=== PATIENT | female | born 1970 | race Caucasian/White ===

== ENCOUNTER 2017-01-14 13:47 | Emergency (ER) | payer BC ==
[2017-01-14 14:45] LABS: COLOR YELLOW; LEUKOCYTE ESTERASE,URINE NEGATIVE (NEGATIVE); NITRITE,URINE POSITIVE (NEGATIVE)
[2017-01-14 14:49] VITALS: BP 119/70; PULSE 76; RESP 16; TEMP 98.4; O2SAT 97
[2017-01-14 14:55] LABS: BACTERIA 4+ /hpf (NONE SEEN)
--- NOTE | 2017-01-14 15:10 | UCPHY ---
H & P Time Seen by Provider: 01/14/17 14:55 Patient Type: Established HPI/ROS: HPI Urinary complaints. 46-year-old female by private vehicle. This patient reports that she has had increased frequency with urination and burning with urination for the last 1-2 days. She has had urinary tract infections in the past. She was treated for urinary tract infection last in August of 2016. She was given Keflex at that time with good results. ROS: Constitutional: No fever, no chills. No weakness. Eyes: No discharge. No changes in vision. ENT: No sore throat. No nasal congestion or rhinorrhea. Respiratory: No cough. No shortness of breath. Cardiac: No chest pain, no palpitations. Gastrointestinal: No abdominal pain, no vomiting, no diarrhea. Genitourinary: No hematuria. No dysuria or increased frequency with urination. Musculoskeletal: No back pain. No neck pain. No myalgias or arthralgias. Skin: No rashes. Neurological: No headache. No focal weakness or altered sensation. Past medical history: Migraine headaches, hypothyroid, urinary tract infections , appendectomy, hysterectomy. Social history: Here by herself. Nonsmoker. No alcohol. Physical Exam: General Appearance: Alert, no distress. This patient is responding to questions appropriately and in full sentences. This patient appears well- hydrated and well-nourished. Eyes: Pupils equal and round no pallor or injection. No lid edema, erythema or injection. Gastrointestinal: Abdomen is soft and nontender, no masses, bowel sounds normal. No focal tenderness at McBurney's point. No Delacruz sign. Neurological: Motor sensory function is grossly intact. Cranial nerves are normal. Gait is normal. Skin: Warm and dry, no rashes. Musculoskeletal: No CVA tenderness on palpation bilaterally. Extremities are symmetrical. All joints range without pain or impingement. Psychiatric: No agitation. No depression. Database: EKG: Imaging: Procedures: Emergency department course: Urinalysis indicates urinary tract infection. Patient given 500 mg of Keflex at urgent care. Plan will be to prescribe this medication to be taken 4 times daily over the next 5 days. She will also be given Pyridium for symptom relief. She feels comfortable going home and I feel she is safe for discharge. Her vital signs have been reviewed and are normal. Follow-up and return to Urgent Care precautions have been discussed with her. All of her questions were answered. She was discharged in good condition. Differential Diagnosis: The differential diagnosis on this patient includes but is not limited to urinary tract infection. Pyelonephritis, STD, appendicitis unlikely. This represents a partial list of diagnoses considered. These considerations are based on history, physical exam, past history, reassessment and diagnostic testing. Constitutional: Initial Vital Signs Temperature (C) 36.9 C 01/14/17 14:44 Heart Rate 76 01/14/17 14:44 Respiratory Rate 16 01/14/17 14:44 Blood Pressure 119/70 01/14/17 14:44 O2 Sat (%) 97 01/14/17 14:44 O2 Delivery Mode Room Air Allergies/Adverse Reactions: clindamycin Allergy (Verified 01/14/17 14:43) nitrofurantoin [From Macrobid] Allergy (Verified 01/14/17 14:43) nitrofurantoin macrocrystalline [From Macrobid] Allergy (Verified 01/14/17 14:43 ) ondansetron HCl [From Zofran] Allergy (Verified 01/14/17 14:43) Sulfa (Sulfonamide Antibiotics) Allergy (Verified 01/14/17 14:43) Home Medications: Medication Instructions Recorded Synthroid 175 mcg (RX) 11/23/13 Cephalexin [Keflex (*)] 500 mg PO Q6 5 Days 01/14/17 Phenazopyridine HCl [Pyridium] 200 mg PO TID #10 tab 01/14/17 Medical Decision Making - Data Points Laboratory Results: 01/14/17 14:40 Urine Color YELLOW Urine Appearance CLOUDY Urine pH 7.0 (5.0-7.5) Ur Specific [place] 1.020 (1.002-1.030) Urine Protein NEGATIVE (NEGATIVE) Urine Ketones NEGATIVE (NEGATIVE) Urine Blood 1+ H (NEGATIVE) Urine Nitrate POSITIVE H (NEGATIVE) Urine Bilirubin NEGATIVE (NEGATIVE) Urine Urobilinogen 1.0 EU EU (0.2-1.0) Ur Leukocyte Esterase NEGATIVE (NEGATIVE) Urine RBC 5-10 /hpf H /hpf (0-3) Urine WBC 10-15 /hpf H /hpf (0-3) Ur Epithelial Cells TRACE /lpf /lpf (NONE-1+) Urine Bacteria 4+ /hpf H /hpf (NONE SEEN) Urine Glucose NEGATIVE (NEGATIVE) Departure - Departure Disposition: Home, Routine, Self-Care Clinical Impression: Urinary tract infection Condition: Good Instructions: Urinary Tract Infection in Women (ED) Additional Instructions: Read and follow provided instructions. Follow-up with your primary care physician in 1-2 days for re-evaluation as needed. Take medication as prescribed through entire course of treatment. Return to the emergency department for worsening symptoms, pain, fever, vomiting , back pain or other serious concerns. Referrals: BRITTNEY MONGE [Primary Care Provider] - As per Instructions Prescriptions: Cephalexin [Keflex (*)] 500 mg PO Q6 5 Days Phenazopyridine HCl [Pyridium] 200 mg PO TID #10 tab - PQRS PQRS Measurement: Not applicable.
[2017-01-14] MEDS ORDERED: CEPHALEXIN 500 MG CAP PO ONE (15:11)
[2017-01-14] MEDS ORDERED: PHENAZOPYRIDINE HCL 200 MG TAB PO ONE (15:11)
== END 2017-01-14 15:40 | disposition home or self-care (01) ==
LOC: CED 13:47
DX: N39.0 Urinary tract infection, site not specified (principal); E03.9 Hypothyroidism, unspecified; Z87.440 Personal history of urinary (tract) infections
CPT/HCPCS: 81003-PO; 81015-PO; 99214-PO; G0463-PO